=== PATIENT | male | born 1970 | race Caucasian/White ===

== ENCOUNTER 2016-10-20 22:52 | Emergency (ER) | payer SELFPAY ==
[~2016-10-20] VITALS: Ht 170.2 cm; Wt 66.7 kg
[2016-10-21] MEDS ORDERED: HYDROcodone/APAP 5/325 TABLET PO STA (00:09)
[2016-10-21] MEDS ORDERED: HYDROcodone/APAP 5/325 TABLET ONE (00:15)
[2016-10-21 00:54] VITALS: BP 159/82
== END 2016-10-21 00:56 | disposition home or self-care (01) ==
LOC: ED 23:59
DX: S82.65XA Nondisplaced fracture of lateral malleolus of left fibula, initial encounter for closed fracture (principal); X58.XXXA Exposure to other specified factors, initial encounter; Y93.89 Activity, other specified; Y92.009 Unspecified place in unspecified non-institutional (private) residence as the place of occurrence of the external cause; Y99.8 Other external cause status
CPT/HCPCS: 29515

== ENCOUNTER 2016-11-25 02:55 | Emergency (ER) | payer MEDICAID ==
[~2016-11-25] VITALS: Ht 172.7 cm; Wt 69.2 kg
[2016-11-25 02:59] VITALS: BP 153/79
[2016-11-25 04:19] LABS: ASPARTATE AMINO TRANSFERASE 31 U/L (15-37); BLOOD UREA NITROGEN 21 mg/dL (7-18)
[2016-11-25 05:12] LABS: HIV 1&2 ANTIBODY SCREEN Nonreactive (Nonreactive); HIV-1 p24 ANTIGEN Nonreactive (Nonreactive)
== END 2016-11-25 05:07 | disposition left against medical advice (07) ==
LOC: ED 03:12
DX: J41.1 Mucopurulent chronic bronchitis (principal); J45.909 Unspecified asthma, uncomplicated; F17.200 Nicotine dependence, unspecified, uncomplicated
CPT/HCPCS: 36415; 71020; 80053; 85025; 86703; 87899; 99285; G0435

== ENCOUNTER 2018-05-19 17:54 | Emergency (ER) | payer MEDICAID ==
[~2018-05-19] VITALS: Ht 172.7 cm; Wt 84.0 kg
--- NOTE | 2018-05-19 18:23 | NUR ---
PT ARRIVBES TO ED WITH INCREASING SOB. PT REPORTS ITS WORSE WHEN PT LIES ON BED FLAT. HE FEELS LIKE HE IS CHOKING AND CANT BREATHE. PT REPORTS HE "CHUGGED A BOTTLE OF ROBATUSSIN" TO MAKE MY LUNGS FEEL BREATHE BETTER. PT REPORTS THAT HE WAS JUST AT WORK WHEN THE PAIN STARTED AND HE HIMSELF HAS NOT FELT WELL AT HOME. PT HAS HAD NO CHEST PAIN JUST FULL SENSATION IN HIS LUNGS. PT CONNECETED TO ALL MONITORS AND CALL LIGHT IN REACH. VSS
[2018-05-19] MEDS ORDERED: ASPIRIN 81 MG TABLET CHEW PO ONE (18:30)
--- NOTE | 2018-05-19 18:37 | NUR ---
BLOOD DRAWN AND GIVEN TO SPONGE CLIPPER.
[2018-05-19 18:47] LABS: BASOPHILS # (AUTO) 0.05 x10^3/uL (0-0.1); BASOPHILS % (AUTO) 1 % (0-1); EOSINOPHILS # (AUTO) 0.09 x10^3/uL (0-0.4); EOSINOPHILS % (AUTO) 1 % (1-7); LYMPHOCYTES # (AUTO) 1.57 x10^3/uL (1-3.4); LYMPHOCYTES % (AUTO) 25 % (22-44); MD NO; MEAN CORPUSCULAR HEMOGLOBIN 33.5 pg (27.5-34.5); MEAN CORPUSCULAR HGB CONC 34.6 g/dL (33.2-36.2); MEAN CORPUSCULAR VOLUME 96.8 fL (81-97); MEAN PLATELET VOLUME 7.3 fL (7.4-10.4); MONOCYTES # (AUTO) 0.64 x10^3/uL (0.2-0.8); MONOCYTES % (AUTO) 10 % (2-9); NEUTROPHILS # (AUTO) 3.93 x10^3/uL (1.8-6.8); NEUTROPHILS % (AUTO) 63 % (42-75); PLATELET COUNT 291 x10^3/uL (130-400); RED BLOOD COUNT 4.81 x10^6/uL (4.38-5.82); RED CELL DISTRIBUTION WIDTH 13.8 % (9.4-14.8)
[2018-05-19] MEDS ORDERED: ASPIRIN 81 MG TABLET CHEW ONE (18:50)
[2018-05-19 18:51] LABS: ALANINE AMINOTRANSFERASE 68 U/L (12-78); ALBUMIN 4.1 g/dL (3.4-5.0); ANION GAP 8 mmol/L (5-15); CALCIUM 8.8 mg/dL (8.5-10.1); CHLORIDE 107 mmol/L (98-107); CREATININE 1.08 mg/dL (0.7-1.3)
[2018-05-19 18:55] LABS: ALKALINE PHOSPHATASE 68 U/L (45-117); BILIRUBIN,TOTAL 0.4 mg/dL (0.2-1.0); TOTAL PROTEIN 7.3 g/dL (6.4-8.2); TROPONIN I < 0.015 ng/mL (0.000-0.045)
--- NOTE | 2018-05-19 19:00 | NUR ---
FLOAT RN: PT RESTING IN ROOM. VS STABLE. NO ACUTE DISTRESS NOTED. CALL LIGHT IN PLACE. WILL CONTINUE TO MONITOR. FAMILY AT BEDSIDE.
--- NOTE | 2018-05-19 19:22 | NUR ---
REPORT GIVEN TO BAMBI BOWERS
[2018-05-19 19:25] VITALS: BP 122/84
--- NOTE | 2018-05-19 19:32 | NUR ---
ALL REUSTLS BACK, CHART UP FOR RECHECK.
--- NOTE | 2018-05-19 20:06 | NUR ---
Patient/Caregiver given discharge instructions and they have confirmed that they understand the instructions. Patient ambulatory with steady gait.
== END 2018-05-19 20:25 | disposition home or self-care (01) ==
LOC: ED 20:18
DX: R07.2 Precordial pain (principal); J45.909 Unspecified asthma, uncomplicated
CPT/HCPCS: 36415; 71046; 80053; 83880; 84484; 85025; 93005; 99283; 99284